=== PATIENT | male | born 1985 | race Hispanic/Latino ===

== ENCOUNTER 2022-02-20 13:27 | Emergency (ER) | payer MEDICAID, OTHER ==
[~2022-02-20] VITALS: Ht 175.3 cm; Wt 83.9 kg
[2022-02-20 13:34] VITALS: BP 122/82
[2022-02-20] MEDS ORDERED: 0.9%NACL 1000ML 1,000 ML IV ONE ×2 (16:00→17:00)
[2022-02-20] MEDS ORDERED: ACETAMINOPHEN 500 MG TABLET PO ONE (16:00)
[2022-02-20] MEDS ORDERED: IBUPROFEN 600 MG TABLET PO ONE (16:00)
[2022-02-20 16:17] LABS: BASOPHILS % (AUTO) 0.6 % (0.0-5.0); HEMATOCRIT 41.9 % (42-54); LYMPHOCYTES % (AUTO) 25.6 % (21.0-51.0); MEAN CORPUSCULAR HEMOGLOBIN 28.9 pg (27.0-33.0); MEAN CORPUSCULAR HGB CONC 35.1 g/dL (32.0-36.0); MEAN CORPUSCULAR VOLUME 82.3 fL (79-99); NEUTROPHILS % (AUTO) 66.4 % (40.0-77.0); PLATELET COUNT (AUTO) 142 K/uL (130-400); RED BLOOD CELL COUNT(AUTO) 5.09 MIL/uL (4.50-6.20); RED CELL DISTRIBUTION WIDTH 13.1 % (11.0-15.5); WHITE BLOOD COUNT (AUTO) 5.1 K/uL (4.8-10.8)
[2022-02-20 16:20] LABS: APPEARANCE,URINE CLEAR (CLEAR); BILIRUBIN,URINE NEGATIVE (NEGATIVE); COLOR,URINE YELLOW (YELLOW); GLUCOSE, URINE (UA) NEGATIVE (NEGATIVE); KETONES,URINE 5 mg/dL (NEGATIVE); LEUKOCYTE ESTERASE ,URINE NEGATIVE Leu/uL (NEGATIVE); NITRATE,URINE NEGATIVE (NEGATIVE); PROTEIN,URINE 70 mg/dL (NEGATIVE); UROBILINOGEN,URINE >=8.0 mg/dL (0.2-1.0)
[2022-02-20 16:28] LABS: POTASSIUM 3.6 mmol/L (3.5-5.1)
[2022-02-20 16:29] LABS: BACTERIA,URINE FEW /HPF (None Seen); MUCUS,URINE MOD LPF (None Seen); SQUAMOUS EPITHELIAL CELL,UR RARE /HPF (0-2); WBC,URINE 0-1 /HPF (0-1)
[2022-02-20 16:37] LABS: ALBUMIN 3.9 g/dL (3.5-5.0)
[2022-02-20] MEDS ORDERED: ONDANSETRON 4MG INJ ONE (16:50)
[2022-02-20] MEDS ORDERED: FAMOTIDINE 20MG VIAL IV ONE ×2 (16:50→17:00)
[2022-02-20] MEDS ORDERED: ONDANSETRON 4MG INJ IVP ONE (17:00)
[2022-02-20] MEDS ORDERED: IBUP-2070 PO (17:15)
[2022-02-20] MEDS ORDERED: ONDA4TAB10 PO (17:15)
[2022-02-20] MEDS ORDERED: ACET-66 PO (17:15)
== END 2022-02-20 17:30 | disposition home or self-care (01) ==
LOC: EDH 13:27
DX: B34.9 Viral infection, unspecified (principal); Z20.822 Contact with and (suspected) exposure to COVID-19; Z79.899 Other long term (current) drug therapy; Z79.1 Long term (current) use of non-steroidal anti-inflammatories (NSAID)
CPT/HCPCS: 99284; 96374; 71045; 96361; 87635; 96375; 80053; 85025; 87040 ×2; 87880; 87804 ×2; 83605; 81001; 36415; C9803; J3490; J7030; J2405